=== PATIENT | female | born 1965 | race Two or more races ===

== ENCOUNTER 2019-02-07 07:30 | Day surgery (SDC) | payer OTHER ==
[2019-02-07] MEDS ORDERED: IBU600 MG PO (10:40)
== END 2019-02-07 17:03 | disposition home or self-care (01) ==
LOC: CIR.AMB 07:30
DX: N84.0 Polyp of corpus uteri (principal)

== ENCOUNTER 2021-01-08 05:20 | Day surgery (SDC) | payer OTHER ==
[~2021-01-08 05:20] MED LIST: FOLIC ACID PO; IBU600 MG PO; MULTI VITAMIN1 EACH PO; PROBIOTIC1 EAC2 PO; VITAMIN C; VITAMIN D310 MCG/1 M PO; VITAMIN E PO
== END 2021-01-08 18:20 | disposition home or self-care (01) ==
LOC: CIR.AMB 05:20
PROVIDERS: ATTEND Urology
DX: N36.1 Urethral diverticulum (principal); Z20.822 Contact with and (suspected) exposure to COVID-19